=== PATIENT | female | born 1950 | race Caucasian/White ===

== ENCOUNTER 2022-11-23 11:25 | Emergency (ER) | payer MEDICARE, SELFPAY ==
--- NOTE | 2022-11-23 11:15 | RT.EKG_ITS ---
APPROVED REPORT Exam: Resting ECG Reason for Exam: severe chest pain Patient Location: E HR:105 bpm ECG Measurements Heart Rate 105 AXIS WI 183 P 55 QRSd 95 QRS 34 QT 345 T 86 QTc 433 Conclusion Sinus rhythm...normal P axis, V-rate 60- 99 Paired ventricular premature complexes...sequence of 2 V complexes Nonspecific repol abnormality, diffuse leads...ST dep, T flat/neg, ant/lat/inf sinus rhtyhm, normal axis, runs of PVCs
[2022-11-23 11:30] VITALS: BP 144/109; PULSE 129; RESP 20
[2022-11-23] MEDS: Aspirin 81 MG CHEW 324 MG CH (11:40)
[2022-11-23] MEDS: Normal Saline 1,000 ML 1000 ML IV (11:43)
--- NOTE | 2022-11-23 11:50 | ED.GENADUL_ITS ---
Discharge Plan Disposition Patient Disposition: Home Discharge Details Chief Complaint: Chest Pain Clinical Impression: Frequent PVCs Primary Care Provider: Unknown,Unknown ED Provider: Frandy Garcia Home Meds and New Rx's Prescriptions: No Action metoprolol tartrate 25 mg Tablet 12.5 mg PO BID aspirin 81 mg Capsule 81 mg PO DAILY Discharge Instructions Instructions: Premature Ventricular Contractions (ED) Additional Instructions: Please follow-up with [facility] cardiology. Please return to the emergency department for any worsening symptoms. Medical Decision Making 72-year-old female history of past arrhythmias SVT PVCs and tachycardia on metoprolol presents with sensation of irregular heartbeat and chest pain. Denies respiratory symptoms such as shortness of breath or cough denies presyncope or syncope. Appears uncomfortable on arrival. Irregularly irregular tachycardia upon auscultation and palpation, patient having sinus beats with frequent runs of PVCs. Possible bilateral lead ST depressions. Consider recurrent arrhythmia versus ACS lower suspicion for infection or PE or aortic pathology. Will assess for any electrolyte derangement. Will obtain chest x- ray will provide fluid bolus. Close reassessment of symptoms disposition pending results and reassessment. If self resolution will likely have patient follow-up with [facility] cardiology team 13:25 normal sinus rhythm normal axis QTc 429 nonischemic. Patient feeling much better; resting comfortably no chest pain, neurologically intact; will replete potassium patient will likely be discharged home and follow-up closely with [facility] cardiology 14:18 patient resting comfortably no acute distress. Heart rate has remained in the 50s to 60s. Sinus rhythm. HPI General Date/Time Provider Initiated Documentation: 11/23/22 11:35 . HPI Narrative: 72-year-old female history of arrhythmia longstanding PVCs SVT and tachycardia, on metoprolol, has loop recorder and follows with [facility] cardiology presents with chest pain over the last 30 minutes accompanied by the sensation of irregular heartbeat. Denies shortness of breath nausea vomiting or syncope. Denies history of coronary artery disease stenting or open heart surgery. Related Data Home Medications Medication Instructions Recorded Confirmed aspirin 81 mg capsule 81 mg PO DAILY 11/23/22 11/23/22 metoprolol tartrate 25 mg tablet 12.5 mg PO BID 11/23/22 11/23/22 Allergies Allergy/AdvReac Type Severity Reaction Status Date / Time Sulfa (Sulfonamide Allergy Intermediate Skin Rash Unverified 11/23/22 11:36 Antibiotics) General Stated Complaint: Chest Pain WINSTON: 2 Review of Systems Narrative: Review of Systems Constitutional: negative Eyes: negative ENT: negative Cardiovascular: Chest pain, irregular heart rate Respiratory: negative Gastrointestinal: negative : negative Musculoskeletal: negative Skin: negative Neurologic: negative Psych: negative PFSH All Active Problems (Updated 11/23/22 @ 14:22 by Frandy Garcia MD) Frequent PVCs (Acute) Social History Smoking/Tobacco Use Status: Never Smoking risk assessment performed?: Yes Alcohol Intake: never Drug use: Never Substance use type: does not use Do you feel safe at home: Yes Do you feel safe in your relationship?: Yes Exam Narrative Exam Narrative: Physical Examination General: alert, awake, cooperative, uncomfortable appearing HEENT: normocephalic, atraumatic; PERRL, EOM intact, conjunctiva normal; no nasal discharge; moist mucous membranes, oral and pharyngeal mucosa normal, tolerating secretions Neck: supple, trachea midline; full ROM Chest: normal to inspection Respiratory: normal respiratory effort, speaking in full sentences, clear to auscultation, no wheezing, rales or rhonchi Cardiac: Irregularly irregular tachycardia, S1S2 intact, no murmurs rubs or gallops GI: abdomen soft, non-tender, non-distended; no palpable mass or hepatosplenomegaly Skin: no lesions, rashes or trauma appreciated Neuro: AAOx3, normal speech, moving all extremities Psych: Appropriate mood and affect Course Vital Signs Vital signs: Vital Signs Pulse 129 H 11/23/22 11:30 Respiratory Rate 20 11/23/22 11:30 Blood Pressure 144/109 H 11/23/22 11:30 Temperature Source Oral 11/23/22 11:30 Pulse 129 H 11/23/22 11:30 Respiratory Rate 20 11/23/22 11:30 Respiratory Effort Normal, Non-Labored 11/23/22 11:34 Blood Pressure 144/109 H 11/23/22 11:30 Blood Pressure Position Sitting 11/23/22 11:30 Oxygen Delivery Method Room Air 11/23/22 11:30 Oxygen Flow Rate 0 11/23/22 11:30
[2022-11-23 11:54] LABS: Abs Immature Grans 0.02 10^3/uL (0.0-0.06); Absolute Basophil Count 0.03 10^3/uL (0.0-0.2); Absolute Eosinophil Count 0.21 10^3/uL (0.0-0.7); Absolute Lymphocyte Count 4.77 10^3/uL (1.2-3.4); Absolute Monocyte Count 0.66 10^3/uL (0.1-0.8); Absolute Neutrophil Count 3.77 10^3/uL (1.2-6.7); Basophils % 0.3; Eosinophils % 2.2; HCT 41.7 % (36.0-46.0); HGB 14.4 g/dL (11.2-15.7); Immature Grans % 0.2; Lymphocytes % 50.4; MCH 30.4 pg (27.0-33.0); MCHC 34.5 % (32.0-36.0); MCV 88 fL (80-95); MPV 10.5 fL (8.0-11.0); Neutrophils % 39.9; Platelet Count 258 10^3/uL (130-400); RBC 4.73 10^6/uL (3.93-5.22); RDW 13.2 % (11.7-14.6); RDW-SD 42.5 fL; WBC 9.46 10^3/uL (4.4-10.8)
--- NOTE | 2022-11-23 11:54 | DI.RAD_ITS ---
Exam(s) XR PORTABLE CHEST AP EXAM: XR PORTABLE CHEST AP CLINICAL HISTORY: chest pain TECHNIQUE: 2D digital imaging was performed of the chest. One image was obtained. An AP view was ob tained. COMPARISON: No exams were available for comparison FINDINGS: MEDIASTINUM: Normal. HEART: Normal. PULMONARY VASCULATURE: Normal. LUNGS: Clear. PLEURAL SPACE: No pleural effusion or pneumothorax. BONE:Within normal limits for the patient's age. OTHER FINDINGS:Normal. IMPRESSION: No acute pulmonary findings. DATA REPOSITORY: RADIATION DOSE DELIVERED:
[2022-11-23 12:24] LABS: PTT Activated 25.5 sec (21.5-31.9); Prothrombin Time 10.4 sec (9.3-11.0)
[2022-11-23 12:34] LABS: NT-proBNP 294 pg/mL (<300)
[2022-11-23 12:37] LABS: ALT 21 U/L (14-59); AST 15 U/L (15-37); Albumin 3.9 g/dL (3.4-5.0); Alkaline Phosphatase 95 U/L (46-116); Anion Gap 13.1 mmol/L (3-11); BUN 19 mg/dL (7-18); Bilirubin, Total 0.8 mg/dL (0.2-1.0); CO2 23.9 mmol/L (21.0-32.0); CREATININE 1.2 mg/dL (0.55-1.02); Calcium 9.2 mg/dL (8.5-10.1); Chloride 105 mmol/L (98-107); Estimated GFR 48.39 (mL/min/1.73m2); Glucose 127 mg/dL (74-106); Sodium 142 mmol/L (136-145); TSH (W/Ref FT4) 4.39 uIU/mL (0.36-3.74); Total Protein 8.3 g/dL (6.4-8.2); Troponin I < 50 ng/L (<or=60)
--- NOTE | 2022-11-23 12:45 | RT.EKG_ITS ---
APPROVED REPORT Exam: Resting ECG Reason for Exam: repeat Patient Location: E HR:51 bpm ECG Measurements Heart Rate 51 AXIS LA 138 P 28 QRSd 101 QRS 30 QT 468 T 52 QTc 429 Conclusion Sinus bradycardia...rate< 60 Atrial premature complex...SV complex w/ short R-R interval sinus bradycardia, normal axis, normal intervals, non ischemic
[2022-11-23 12:54] LABS: FREE T4 1.12 ng/dL (0.76-1.46)
[2022-11-23] MEDS: POTASSIUM CHLORIDE 10 MEQ/100 ML BAG 100 MEQ IVPB (13:12)
[2022-11-23] MEDS: Potassium Chloride 20 MEQ TABCR PO (13:12)
[2022-11-23 15:25] VITALS: RESP 18
== END 2022-11-23 15:37 | disposition home or self-care (01) ==
PROVIDERS: Emergency Provider Emergency Medicine
DX: I49.3 Ventricular premature depolarization (principal)
CPT/HCPCS: 36415; 80053; 93005; 96361; 96365; 99284; 71045; 83735; 83880; 84439; 84443; 84484; 85025; 85610; 85730; 93010; J3480

== ENCOUNTER 2023-06-16 23:51 | Emergency (ER) | payer MEDICARE, SELFPAY ==
--- NOTE | 2023-06-16 23:45 | RT.EKG_ITS ---
APPROVED REPORT Exam: Resting ECG Reason for Exam: palpitations Patient Location: E HR:91 bpm ECG Measurements Heart Rate 91 AXIS SC 152 P 53 QRSd 94 QRS 12 QT 366 T 77 QTc 452 Conclusion Sinus rhythm...normal P axis, V-rate 60- 99 Sinus rhythm. Decreased heart rate when compared to prior 11/23/22. WD
[2023-06-16 23:55] VITALS: BP 210/86; PULSE 98; RESP 16; TEMP 36.6; O2SAT 100
[2023-06-17] VITALS (124 sets, daily range): BP systolic 109–184; BP diastolic 34–89; PULSE 47–96; RESP 11–25; O2SAT 94–100
--- NOTE | 2023-06-17 00:06 | ED.GENADUL_ITS ---
Discharge Plan Discharge Details Chief Complaint: Palpitatns ED Provider: Crystal Calvert Home Meds and New Rx's Prescriptions: No Action metoprolol tartrate 25 mg Tablet 12.5 mg PO BID aspirin 81 mg Capsule 81 mg PO DAILY Medical Decision Making 72-year-old female with history of arrhythmia presents for evaluation and arrhythmia. At time my evaluation she is in a regular sinus rhythm. Heart rate is in the 90s. Will check laboratory studies for electrolyte abnormalities. HPI General Date/Time Provider Initiated Documentation: 06/16/23 23:53 . HPI Narrative: 72-year-old female with history of arrhythmia presents for evaluation of irregular heartbeat. Patient states that earlier this evening she was checking her heartbeat and noted some significant irregularity. She states that it was fast and then very slow. In route to the hospital her symptoms did resolve. She was last seen here in November for similar symptoms. She was on metoprolol at that time. She states that they discontinue the metoprolol as it dropped her heart rate too low. She is now on diltiazem twice a day. She has been taking it as prescribed. She does have a loop recorder and transmitting some information during the events. She denies any chest pain or shortness of breath. She has been having some ongoing difficulty with nausea. She has had decreased oral intake. She had a colonoscopy last week due to the symptoms. She states that the etiology of symptoms has not yet been determined. She has had some constipation recently. Denies any vomiting. Related Data Home Medications Medication Instructions Recorded Confirmed aspirin 81 mg capsule 81 mg PO DAILY 11/23/22 11/23/22 metoprolol tartrate 25 mg tablet 12.5 mg PO BID 11/23/22 11/23/22 Allergies Allergy/AdvReac Type Severity Reaction Status Date / Time Sulfa (Sulfonamide Allergy Intermediate Skin Rash Unverified 11/23/22 11:36 Antibiotics) General Stated Complaint: Palpitatns WINSTON: 2 Review of Systems Narrative: Remainder of review of systems otherwise negative except for as noted in the HPI x10. PFSH Social History Smoking/Tobacco Use Status: Never Smoking risk assessment performed?: Yes Alcohol Intake: never Drug use: Never Substance use type: does not use Housing: house Do you feel safe at home: Yes Do you feel safe in your relationship?: Yes Exam Narrative Exam Narrative: General: non-toxic, no respiratory distress, comfortable HEENT: normocephalic, atraumatic, lids and lashes normal, PERRL, EOMI, anicteric sclera, no conjunctival injection, moist oral mucosa Card: regular rate and rhythm, S1S2, no murmurs, rubs, or gallops Lungs: good air entry, clear to auscultation bilaterally. no wheezes, rales, rhonchi, or retractions Abd: soft, non-tender, non-distended, normal bowel sounds, no rebound or guarding, no peritoneal signs Musculoskeletal: full range of motion of arms and legs, no tenderness to palpation. no clubbing, cyanosis, or edema Neurologic: appropriate for age, strength normal Psych: alert and oriented Skin: no petechiae, no lesions, warm and dry Course Vital Signs Vital signs: Vital Signs Temperature 36.6 C 06/16/23 23:55 Pulse 98 H 06/16/23 23:55 Respiratory Rate 16 06/16/23 23:55 Blood Pressure 210/86 H 06/16/23 23:55 Pulse Oximetry 100 06/16/23 23:55 Temperature 36.6 C 06/16/23 23:55 Temperature Source Oral 06/16/23 23:55 Pulse 98 H 06/16/23 23:55 Respiratory Rate 16 06/16/23 23:55 Respiratory Effort Normal 06/17/23 00:00 Blood Pressure 210/86 H 06/16/23 23:55 Pulse Oximetry 100 06/16/23 23:55 Oxygen Delivery Method Room Air 06/16/23 23:55 Oxygen Flow Rate 0 06/16/23 23:55 Pain Level 0 06/16/23 23:55
[2023-06-17 00:09] LABS: Abs Immature Grans 0.03 10^3/uL (0.0-0.06); Absolute Basophil Count 0.03 10^3/uL (0.0-0.2); Absolute Lymphocyte Count 4.32 10^3/uL (1.2-3.4); Absolute Monocyte Count 0.67 10^3/uL (0.1-0.8); Basophils % 0.3; Eosinophils % 0.9; HCT 42.6 % (36.0-46.0); HGB 15.1 g/dL (11.2-15.7); Immature Grans % 0.3; Lymphocytes % 38.1; MCH 30.2 pg (27.0-33.0); MCHC 35.4 % (32.0-36.0); MCV 85 fL (80-95); MPV 9.9 fL (8.0-11.0); Monocytes % 5.9; Neutrophils % 54.5; Platelet Count 281 10^3/uL (130-400); RDW 12.6 % (11.7-14.6); RDW-SD 38.2 fL; WBC 11.34 10^3/uL (4.4-10.8)
[2023-06-17 00:10] LABS: Absolute Neutrophil Count 6.18 10^3/uL (1.2-6.7)
--- NOTE | 2023-06-17 00:11 | DI.RAD_ITS ---
Exam(s) XR PORTABLE CHEST AP EXAM: XR PORTABLE CHEST AP CLINICAL HISTORY: PALPITATIONS. TECHNIQUE: 2D digital imaging was performed. COMPARISON: CR XR PORTABLE CHEST AP from 11/23/2022 FINDINGS: Single AP portable view. Cardiac loop detector again noted Heart size is upper normal. The mediastinum is not widened. Lungs are clear. No infiltrates nor obvious pleural effusions. IMPRESSION: No acute pulmonary findings on this single AP portable view of the chest. DATA REPOSITORY: RADIATION DOSE DELIVERED:
[2023-06-17] MEDS: Normal Saline 1,000 ML 1000 ML IV (00:21)
[2023-06-17 00:28] LABS: ALT 16 U/L (14-59); AST 14 U/L (15-37); Albumin 3.8 g/dL (3.4-5.0); Alkaline Phosphatase 75 U/L (46-116); Anion Gap 10.2 mmol/L (3-11); BUN 17 mg/dL (7-18); CO2 23.8 mmol/L (21.0-32.0); Calcium 9.3 mg/dL (8.5-10.1); Chloride 101 mmol/L (98-107); Estimated GFR 60.23 (mL/min/1.73m2); Glucose 121 mg/dL (74-106); Potassium 3.3 mmol/L (3.5-5.1); Sodium 135 mmol/L (136-145); Total Protein 8.2 g/dL (6.4-8.2); Troponin I < 50 ng/L (<or=60)
[2023-06-17 00:36] LABS: TSH (W/Ref FT4) 4.58 uIU/mL (0.36-3.74)
--- NOTE | 2023-06-17 00:42 | DI.VRAD_ITS ---
PROCEDURE INFORMATION: Exam: XR Chest Exam date and time: 06/17/2023 12:17 AM Age: 72 years old Clinical indication: Other: Palpitations TECHNIQUE: Imaging protocol: Radiologic exam of the chest. Views: 1 view. COMPARISON: CR XR PORTABLE CHEST AP 11/23/2022 11:50 AM FINDINGS: Lungs: Unremarkable. No consolidation. Pleural spaces: Unremarkable. No pleural effusion. No pneumothorax. Heart/Mediastinum: Unremarkable. No cardiomegaly. Bones/joints: Unremarkable. IMPRESSION: No acute findings. Dictated and Authenticated by: Humberto Espinal MD. Ordering:GEE Rojas MD
[2023-06-17 00:58] LABS: FREE T4 1.35 ng/dL (0.76-1.46)
[2023-06-17] MEDS: Potassium Chloride 20 MEQ TABCR 40 MEQ PO (02:17)
[2023-06-17 03:25] LABS: Troponin I 112 ng/L (<or=60)
--- NOTE | 2023-06-17 03:30 | RT.EKG_ITS ---
APPROVED REPORT Exam: Resting ECG Reason for Exam: elevated troponin Patient Location: E HR:66 bpm ECG Measurements Heart Rate [address] 147 P 55 QRSd 92 QRS 22 QT 406 T 64 QTc 426 Conclusion Sinus rhythm...normal P axis, V-rate 60- 99 Atrial premature complexes...SV complexes w/ short R-R intvls Abnormal T, consider ischemia, anterior leads...T <-0.20mV, V2-V4 simus rhythm with PAC, T wave inversion V1-V3, wave inversions are new from earlier. WD
[2023-06-17 05:34] LABS: Troponin I 129 ng/L (<or=60)
[2023-06-17] MEDS: Aspirin 81 MG CHEW 324 MG PO (06:00)
--- NOTE | 2023-06-17 06:33 | NUR.NOTE ---
Nursing Note:Late entry: Pt comes to the ED in private car with her , states that she has had a WI in the past. She has a loop recorder implant and that it is followed up at [facility]. The pt stated that watching TV and felt palpations no other symptoms. Stated she drove over an hour to come to the ED. The pt stated that she was no longer taking daily asa and changed to Cardizem BID. During her ED visit the pt states that her nausea was gone and had not needed the zofran at this time. The pt denies having irregular rhythm in the past. !st EKG normal 2nd one showed T-waves changes. Three trops drawn with each one increasing. spoke to cardiology and the pt is to be accepted at [facility] po asa given
--- NOTE | 2023-06-17 08:34 | ED.PROG_ITS ---
Date of service: 06/17/23 Time of Service: 06:45 Medical Decision Making I received a short signout and have seen and examined the patient. I did not receive a formal signout because the patient had been accepted at [facility] but we are awaiting a bed placement. The patient is denying any chest pain. She has no complaints currently. 8:30 AM the patient is requesting breakfast. I have called the [facility] transfer center to inquire about feeding her. They will discuss it with cardiology and call me back. 10:38 AM: The patient will not be transferred till this afternoon, because department is awaiting discharges. I will update her. 11:35 AM: I have updated the patient who tells me she was already aware that she will be transferred in the afternoon because she has access to her [facility] patient portal. She tells me they have already scheduled her for test today. Medical Records Medical records reviewed: Yes I reviewed the patient's medical records. Imaging Data Radiologic Study: Imaging: X-Ray (V rad impression: No acute findings.) Lab Data Lab results reviewed: Yes I reviewed the patient's lab results. Lab results narrative: Mild elevation of second troponin. New T wave inversions. Mild hypokalemia treated with oral potassium prior to my arrival. ECG Data Prior ECG tracings: available for review Narrative 9:12 AM I have written for the patient to receive for p.o. diltiazem. 1522 PM the patient has a bed and has been transferred to [facility]. Discharge Plan Disposition Patient Disposition: Transfer-Acute Inpatient Care Specific Acute Inpt Facility: [facility] Condition: Stable Discharge Details Clinical Impression: Arrhythmia, Nausea, Acute hypokalemia, Elevated troponin Primary Care Provider: Unknown,Unknown ED Provider: Klarissa Rajput Home Meds and New Rx's Prescriptions: No Action diltiazem HCl [Cardizem] 30 mg tablet 30 mg PO BID metoprolol tartrate 25 mg Tablet 12.5 mg PO BID aspirin 81 mg Capsule 81 mg PO DAILY Discharge Instructions Instructions: Hypokalemia (ED), Acute Nausea and Vomiting (ED), Atrial Tachycardia (ED) Discharge Data Discharge Date/Time-TO BE ENTERED AT DEPARTURE: 06/17/23 15:23
[2023-06-17] MEDS: dilTIAZem 30 MG TAB PO (09:16)
[2023-06-17 14:05] LABS: Troponin I 64 ng/L (<or=60)
== END 2023-06-17 15:23 | disposition short-term general hospital (02) ==
PROVIDERS: Emergency Medicine Emergency Medical Services; Emergency Provider Emergency Medicine Emergency Medical Services
DX: I49.9 Cardiac arrhythmia, unspecified (principal); E87.6 Hypokalemia; R11.0 Nausea; R79.89 Other specified abnormal findings of blood chemistry
CPT/HCPCS: 00123; 80053; 93005; 96360; 96361; 99285; 71045; 83735; 84439; 84443; 84484; 85025; 93010; J2405